=== PATIENT | female | born 1940 | race African-American/Black ===

== ENCOUNTER → 2016-12-08 | Outpatient (CLI) | payer MEDICARE, MEDICAID ==
[~2016-12-08] MED LIST: ASCO500T11 PO; ASPI81CH43 PO; CALC-317 PO; COLC0.6T56 PO; DIAZ2TAB PO; ESOM5GRA PO; LEV50T PO; MAGN400T7 PO; NOR5T PO; PRAV20TA3 PO; SULF400T11 PO; VITAMIN E PO; VORI200T PO; [UNRECOGNIZED DRUG - CODE] PO
[2016-12-08 12:21] LABS: Basophils # (auto) 0 uL; Basophils % (auto) 0.4 % (0.0-2.0); Eosinophils # (auto) 0.1 uL; Eosinophils % (auto) 1.4 % (0.0-7.0); Hematocrit 39.8 % (36.0-46.0); Hemoglobin 12.8 g/dL (12.2-16.2); Lymphocytes # (auto) 1.3 uL; Lymphocytes % (auto) 29.6 % (10.0-50.0); Mean Corpuscular Hemoglobin 27.6 pg (28.0-32.0); Mean Corpuscular Hgb Conc. 32.2 g/dL (32.0-36.0); Mean Corpuscular Volume 85.7 fL (80.0-100.0); Mean Platelet Volume 10.3 fL (7.4-10.4); Monocytes # (auto) 0.3 uL; Monocytes % (auto) 7.2 % (0.0-12.0); Neutrophils # (auto) 2.8 uL; Neutrophils % (auto) 61.4 % (37.0-80.0); Platelet Count (auto) 208 10^3/uL (140-450); Red Cell Distribution Width 14.7 % (11.6-16.0); White Blood Cell 4.5 10^3/uL (4.4-10.8)
[2016-12-08 12:25] LABS: Albumin 3.4 g/dL (3.4-5.0); BUN/Creatinine Ratio 19.3; Bilirubin, Total 0.5 mg/dL (0.2-1.0); Calcium 9.2 mg/dL (8.5-10.1); Potassium 3.5 mmol/L (3.5-5.1); Total Protein 7.7 g/dL (6.4-8.2); Uric Acid 6.3 mg/dL (2.6-6.0)
[2016-12-08 14:17] LABS: B-Type Natriuretic Peptide 147.58 pg/mL (0-100); Temperature: 22.2 C (20.0-25.0)
== END | disposition home or self-care (01) ==
LOC: LAB 11:16
DX: Z94.1 Heart transplant status (principal)
CPT/HCPCS: 36415; 80053; 80061; 82550; 83735; 83880; 84100; 84550; 85025

== ENCOUNTER → 2016-12-27 | Outpatient (CLI) | payer MEDICARE, MEDICAID ==
[2016-12-27 11:57] LABS: Basophils # (auto) 0 uL; Basophils % (auto) 0.4 % (0.0-2.0); DEFINITIVE VIEW TRANSMISSION; Eosinophils # (auto) 0.1 uL; Eosinophils % (auto) 1.4 % (0.0-7.0); Hematocrit 40.5 % (36.0-46.0); Lymphocytes # (auto) 1.5 uL; Mean Corpuscular Hemoglobin 26.8 pg (28.0-32.0); Mean Corpuscular Hgb Conc. 32.1 g/dL (32.0-36.0); Mean Corpuscular Volume 83.5 fL (80.0-100.0); Mean Platelet Volume 9.9 fL (7.4-10.4); Monocytes # (auto) 0.5 uL; Neutrophils # (auto) 3.2 uL; Neutrophils % (auto) 60.2 % (37.0-80.0); Platelet Count (auto) 219 10^3/uL (140-450); Red Cell Distribution Width 14.8 % (11.6-16.0); White Blood Cell 5.3 10^3/uL (4.4-10.8)
[2016-12-27 12:20] LABS: BUN/Creatinine Ratio 10.5; Calcium 9.5 mg/dL (8.5-10.1); Potassium 4.3 mmol/L (3.5-5.1)
== END | disposition home or self-care (01) ==
LOC: EDBD 10:54 → LAB 10:54
DX: Z94.1 Heart transplant status (principal)
CPT/HCPCS: 36415; 80048; 80197; 85025

== ENCOUNTER → 2017-01-25 | Outpatient (CLI) | payer MEDICARE, MEDICAID | END | disposition home or self-care (01) | LOC: LAB 10:47 | DX: Z94.1 Heart transplant status (principal) | CPT/HCPCS: 80197 ==

== ENCOUNTER → 2017-02-07 | Outpatient (CLI) | payer MEDICARE, MEDICAID | END | disposition home or self-care (01) | LOC: LAB 10:38 | DX: Z94.1 Heart transplant status (principal) ==